=== PATIENT | male | born 1990 | race Caucasian/White ===

== ENCOUNTER 2019-08-01 19:49 | Emergency (ER) | payer OTHER ==
[~2019-08-01] VITALS: Ht 170.2 cm; Wt 85.7 kg
[2019-08-01] MEDS ORDERED: PRUNELAX (20:44)
[2019-08-01] MEDS ORDERED: TESTOSTERONE60 GM TD (20:44)
== END 2019-08-01 21:29 | disposition home or self-care (01) ==
LOC: ER 19:49
DX: K21.9 Gastro-esophageal reflux disease without esophagitis (principal)

== ENCOUNTER 2019-11-11 16:49 | Emergency (ER) | payer OTHER ==
[~2019-11-11] VITALS: Ht 170.2 cm; Wt 85.7 kg
[~2019-11-11 16:49] MED LIST: PRUNELAX; TESTOSTERONE60 GM TD
[2019-11-11] MEDS ORDERED: AMOX1TAB5 PO (20:07)
[2019-11-11] MEDS ORDERED: NAPROXEN500 MG PO (20:07)
== END 2019-11-11 20:16 | disposition home or self-care (01) ==
LOC: ER 16:49
DX: J35.01 Chronic tonsillitis (principal)

== ENCOUNTER 2021-11-27 11:17 | Emergency (ER) | payer OTHER ==
[~2021-11-27] VITALS: Ht 170.2 cm; Wt 99.8 kg
[~2021-11-27 11:17] MED LIST changes: +AMOX1TAB5 PO; +NAPROXEN500 MG PO
== END 2021-11-27 16:51 | disposition home or self-care (01) ==
LOC: ER 11:17
DX: H83.03 Labyrinthitis, bilateral (principal); R05.9 Cough, unspecified